=== PATIENT | female | born 1990 | race Caucasian/White ===

== ENCOUNTER 2022-02-26 16:30 | Outpatient (CLI) | payer MEDICAID ==
[~2022-02-26] VITALS: Ht 154.9 cm; Wt 84.9 kg
[2022-02-26 17:00] VITALS: BP 134/83
[2022-02-26 17:20] VITALS: BP 113/75
[2022-02-26 17:55] LABS: BILIRUBIN,URINE NEGATIVE (NEGATIVE); CLARITY,URINE SL CLOUDY; COLOR,URINE YELLOW; GLUCOSE, URINE (UA) NEGATIVE (NEGATIVE); KETONES,URINE TRACE (NEGATIVE); LEUKOCYTE ESTERASE ,URINE NEGATIVE (NEGATIVE); NITRITE,URINE NEGATIVE (NEGATIVE); PROTEIN,URINE NEGATIVE (NEGATIVE)
[2022-02-26 18:02] LABS: BACTERIA,URINE FEW /HPF; RBC,URINE RARE /HPF; WBC,URINE RARE /HPF
--- NOTE | 2022-02-27 08:02 | Physician Query-Final Dx ---
Clinic Account Progress/Dx Physician Query: Please give diagnosis Please include # weeks gestation Date of Service Feb 26, 2022 at 16:30 TIGIST,AugFeb 27, 2022 08:02
== END 2022-02-26 18:15 | disposition home or self-care (01) ==
LOC: LDRP 16:30 → WSo 16:30
PROVIDERS: ATTEND Family Medicine
DX: Z34.90 Encounter for supervision of normal pregnancy, unspecified, unspecified trimester (principal); Z3A.00 Weeks of gestation of pregnancy not specified
CPT/HCPCS: 81000; 84112; 87077; 87088; G0463; 99213